=== PATIENT | male | born 1995 | race Two or more races ===

== ENCOUNTER 2021-03-25 05:50 | Emergency (ER) | payer OTHER, MEDICAID, SELFPAY ==
[2021-03-25 06:11] VITALS: BP 105/63; BP 144/80; PULSE 81; PULSE 90; RESP 16; TEMP 36.6; O2SAT 100; O2SAT 96; BMI 30.2
--- NOTE | 2021-03-25 06:20 | PC.NURSE ---
PT TO ROOM VIA EMS AFTER HAVING POSSIBLE SEIZURE ACTIVITY. PT ARRIVES ALERT, RESPIRATIONS EASY, N/L., SKIN W/D. SEIZURE PADS APPLIED TO BED. NO INCONTINENCE. PT ON MONITOR WITH HR 79. PT AWAITING FOR 'S EVAL. #20G TO LAC.
--- NOTE | 2021-03-25 06:55 | PC.NURSE ---
CALL OUT TO [facility] @[id number] KRUNAL SOOD MD [phone]
--- NOTE | 2021-03-25 06:58 | ED.SEIZURE ---
HPI - Seizure General Chief Complaint: Seizure Stated Complaint: Diff Breathing Time Seen by Provider: 03/25/21 06:18 History of Present Illness HPI Narrative: Patient is a 25-year-old male with a history of seizures. Baseline is on Keppra 1500 twice a day. Has also been titrated upward on the Lamictal currently at 100 mg twice a day since Saturday. Patient was seen at [facility] for seizures had a sleep study was in the hospital for 6 days. Had EEGs done back on February 25. Patient denies any fever chills. These episodes happen in 2 ways patient has an episode that seems partial seizure he knows what is going on it last for few seconds it happens multiple times a day. In addition patient had a different type of seizure where he had difficulty breathing at last for few seconds happens usually during the night. The 2nd type of seizure lasted longer than usual this time lasted for few minutes patient was sent to the hospital for further evaluation. There is no fever no chills. No coughing no congestion or upper respiratory symptoms. The frequency of both type procedure was unchanged. With different today is that this 2nd type of seizure lasted longer than usual. No coughing or congestion or upper respiratory symptoms patient denies no diaphoresis patient claims compliance to medications. Related Data Allergies Allergy/AdvReac Type Severity Reaction Status Date / Time No Known Allergies Allergy Verified 03/25/21 06:57 Review of Systems Review of Systems: No fever no chills no cough no congestion or upper respiratory symptoms Yes all other systems are reviewed and are negative PMFSH Past Medical History Attestation statement: The following information was validated with the patient. Medical History Seizures Social History Social History Alcohol intake: current Alcohol intake frequency: holidays/special occasions only Use of substances other than those prescribed or required for medical reasons: Yes Substance Use Type: Marijuana Advance Directives: No Advance Directives Information Provided: No Physical Exam Vital Signs: Vital Signs: Last Vital Signs Temp 97.8 F 03/25/21 06:11 Pulse 75 03/25/21 07:21 Resp 16 03/25/21 07:21 BP 114/69 03/25/21 07:21 Pulse Ox 99 03/25/21 07:21 BMI result Body Mass Index 30.2 Appearance: Alert. Oriented X3. No acute distress. Eyes: Pupils equal, round and reactive to light. ENT: Pharynx normal. Neck: Normal inspection. Neck supple. No lymph nodes noted. No crepitus CVS: Normal heart rate and rhythm. Pulses normal. Normal S1 and S2 Respiratory: No respiratory distress. Breath sounds normal. No Wheezing. No rales Abdomen: Soft and nontender. No rigidity. No distention. good BS x4 Skin: Skin warm and dry. Normal skin color. Normal skin turgor. Extremities: No lower extremity edema. Neurovascular intact to all extremities. No Lacerations. No Rash Neuro: Oriented X 3. No motor deficit. No sensory deficit. Moving all extermities. No slurred speech MDM - Seizure MDM Narrative Medical decision making narrative: Patient is having breakthrough seizures. This was confirmed with neurologist at [facility]. Patient's case discussed with Dr. Miguel at [facility]. Feel comfortable with current regimen will have patient continue to increase dose of Lamictal by 25 mg b.i.d. until he reaches 150 mg b.i.d.. Currently in stable condition patient has a zoom appointment with his neurologist this coming week. Neurologically intact will discharge home. Medical Records Attestation: I reviewed the patient's medical records. Lab Data Attestation: I reviewed the patient's lab results. Result diagrams: 03/25/21 07:35 03/25/21 07:35 Labs: Lab Results 03/25/21 03/25/21 03/25/21 Range/Units 07:35 07:35 07:35 WBC 15.3 H (4.8-10.8) X10*3/uL RBC 6.24 H (4.60-5.80) X10*6/uL Hgb 13.6 L (14.0-18.0) g/dl Hct 38.9 L (42.0-52.0) % MCV 62.3 L (80.0-98.0) fL MCH 21.8 L (27.0-33.0) pg MCHC 35.0 (31.0-36.0) g/dl RDW 17.2 H (11.0-16.0) % Plt Count 172 (160-400) X10*3/uL MPV Not Reportable Immature Gran % (Auto) 0.4 (0.0-0.4) % Neut % (Auto) 79.7 H (45-73) % Lymph % (Auto) 11.0 L (20-40) % [place] % (Auto) 7.8 (2-11) % Eos % (Auto) 0.7 (0-4) % Baso % (Auto) 0.4 (0-2) % Lymph # (Auto) 1.7 (1.2-4.9) X10*3/uL [place] # (Auto) 1.2 (0.1-1.2) X10*3/uL Eos # (Auto) 0.1 (0.0-0.4) X10*3/uL Baso # (Auto) 0.1 (0.0-0.2) X10*3/uL Abs Immat Gran (auto) 0.06 H (0.00-0.03) X10*3/uL Absolute Neuts (auto) 12.2 H (2.0-8.3) x10*3/uL Absolute Nucleated RBC 0.000 (0.0-0.012) X10*3/uL Nucleated RBC % (auto) 0.0 (0.0-0.2) /100WBC Sodium 139 (135-145) mmol/L Potassium 4.4 (3.3-5.1) mmol/L Chloride 104 (96-108) mmol/L Carbon Dioxide 28 (22-29) mmol/L Anion Gap 11 L (12-20) BUN 11 (9-16) mg/dL Creatinine 0.99 (0.5-1.4) mg/dL Estim Creat Clear Calc 118.6 Estimated GFR > 60 Random Glucose 85 (60-115) mg/dL Calcium 10.0 (8.4-10.2) mg/dL Urine Color YELLOW Urine Appearance CLEAR Urine pH 7.0 (5.0-8.0) Ur Specific [place] 1.020 (1.005-1.025) Urine Protein NEG (NEG-TRACE) MG/DL Urine Glucose (UA) NEG (NEG) MG/DL Urine Ketones NEG (NEG) MG/DL Urine Blood NEG (NEG) Urine Nitrite NEG (NEG) Ur Leukocyte Esterase NEG (NEG) Discharge Plan Discharge Clinical Impression: Epileptic seizure Patient Disposition: Home, Self-Care Instructions: Epilepsy (DC) Referrals: Physician,Unknown J [Primary Care Provider] - 2 days (Follow-up with neurology this week)
[2021-03-25 07:21] VITALS: BP 114/69; PULSE 75; RESP 16; O2SAT 99
[2021-03-25 07:38] LABS: MANUAL DIFF FLAG NO
[2021-03-25 07:40] LABS: Appearance Urine CLEAR; Color Urine YELLOW; Glucose Urine UA NEG (NEG); Leukocyte Esterase Urine NEG (NEG); Nitrite Urine NEG (NEG); Urine Blood NEG (NEG); Urine Ketones NEG (NEG); Urine Protein NEG (NEG-TRACE)
[2021-03-25 07:52] LABS: Basophils Absolute Auto 0.1 X10*3/uL (0.0-0.2); Basophils Percent Auto 0.4 % (0-2); Eosinophils Absolute Auto 0.1 X10*3/uL (0.0-0.4); Eosinophils Percent Auto 0.7 % (0-4); Hematocrit 38.9 % (42.0-52.0); Hemoglobin 13.6 g/dl (14.0-18.0); Imm Gran Abs Auto 0.06 X10*3/uL (0.00-0.03); Imm Gran Pct Auto 0.4 % (0.0-0.4); Lymphocytes Absolute Auto 1.7 X10*3/uL (1.2-4.9); Mean Corpuscular Hemoglobin 21.8 pg (27.0-33.0); Mean Corpuscular Volume 62.3 fL (80.0-98.0); Monocytes Absolute Auto 1.2 X10*3/uL (0.1-1.2); Monocytes Percent Auto 7.8 % (2-11); Neutrophils Absolute Auto 12.2 x10*3/uL (2.0-8.3); Neutrophils Percent Auto 79.7 % (45-73); Platelet Count 172 X10*3/uL (160-400); Red Blood Count 6.24 X10*6/uL (4.60-5.80); Red Cell Distribution Width 17.2 % (11.0-16.0); White Blood Count 15.3 X10*3/uL (4.8-10.8)
[2021-03-25 07:56] LABS: Anion Gap 11 (12-20); Blood Urea Nitrogen 11 mg/dL (9-16); Carbon Dioxide 28 mmol/L (22-29); Chloride 104 mmol/L (96-108); Creatinine Clr Calc Pharmacy 118.6; Estimated Glomerular Filt Rate > 60; Glucose Random 85 mg/dL (60-115); Potassium 4.4 mmol/L (3.3-5.1); Sodium 139 mmol/L (135-145)
== END 2021-03-25 09:17 | disposition home or self-care (01) ==
PROVIDERS: Emergency Provider Emergency Medicine Emergency Medical Services
DX: G40.909 Epilepsy, unspecified, not intractable, without status epilepticus (principal)
CPT/HCPCS: 36415; 80048; 81003; 85025; 99284

== ENCOUNTER 2021-04-12 22:32 | Emergency (ER) | payer OTHER, MEDICAID, SELFPAY ==
--- NOTE | 2021-04-12 22:35 | ECG_ITS ---
Test Reason : SEIZURE Blood Pressure : / mmHG Vent. Rate : 094 BPM Atrial Rate : 094 BPM P-R Int : 154 ms QRS Dur : 080 ms QT Int : 326 ms P-R-T Axes : 042 015 006 degrees QTc Int : 407 ms Normal sinus rhythm ST elevation, consider early repolarization, pericarditis, or injury Abnormal ECG No previous ECGs available Referred By: Bruna Guerrero Electronically Signed By:Riccardo Carter
[2021-04-12 22:39] VITALS: BP 112/63; PULSE 108; RESP 20; TEMP 36.6; O2SAT 98; BMI 28.4
--- NOTE | 2021-04-12 22:46 | PC.NURSE ---
PT TO ROOM, CHG INTO GOWN, SEIZURE PAD APPLIED TO STRETCHER. PT AWAKE, RESPIRAITONS EASY, N/L. SKIN W/D. WILL CONTINUE TO MONITOR PT.
--- NOTE | 2021-04-12 22:57 | ED_ITS ---
HPI - Seizure General Chief Complaint: Seizure Stated Complaint: SZ Time Seen by Provider: 04/12/21 22:35 Source: patient and EMS Mode of arrival: EMS Limitations: no limitations History of Present Illness HPI Narrative: ?25-year-old male with a history of seizures.? Baseline is on Keppra 1500 twice a day.? Has also been titrated upward on the Lamictal currently.?Patient was seen at [facility] for seizures had a sleep study was in the hospital for 6 days.? Had EEGs done back on February 25.? Patient denies any fever chills.? These episodes happen in 2 ways patient has an episode that seems partial seizure he knows what is going on it last for few seconds it happens multiple times a day.?Or he has difficulty breathing, normally at night. Today he did not experience difficulty breathing he just experienced a partial seizure, he remembers the whole thing he tells me. He did not lose conscious ness. He tells me that his left hand goes up to his left eye, and his right hand gets extended and stiff. He tells me this happened while he was rolling up marijuana and smoking. He denies any other drug use. He denies alcohol and tobacco use. He you was witnessed by his family, this episode lasted a few seconds. He was given Versed 5 mg nasally. He denies chest pain, shortness of breath, nausea, vomiting, fevers, chills, upper respiratory symptoms. He denies bladder/bowel incontinence. He denies tongue trauma. Patient tells me is taking his medications as prescribed. During this episode he did not fall or hit his head. complaint: seizure Onset (ago): minute(s) (30) Description of Episode: other (Preceding aura without loss of consciousness.) -: second(s) Witnessed: Yes - by Bystander Trauma: No Seizure History: Yes Place: Home (His mother's home.) Possible Precipitating Event: none and drug use (Smoking marijuana) Associated symptoms: denies other symptoms Treatments prior to arrival: other (5 mg of Versed intranasally) Related Data Allergies Allergy/AdvReac Type Severity Reaction Status Date / Time No Known Allergies Allergy Verified 03/25/21 06:57 Review of Systems Review of Systems: Constitutional : No Weight loss, No Fever, No Chills, No Fatigue, No Malaise ENT/Mouth : No sore throat, No Rhinorrhea Eyes: No Eye Pain, No Swelling, No Redness Cardiovascular : No Chest Pain, No SOB, No Dyspnea on Exertion, No Orthopnea, No Edema, No Palpitations Respiratory : No Cough, No Sputum, No Wheezing Gastrointestinal : No Nausea, No Vomiting, No Diarrhea, No Constipation, No abdominal Pain, No Hematochezia, No Melena Genitourinary : No Dysuria, No Urinary Frequency, No Hematuria, Musculoskeletal : No joint pain, No Myalgias, No Joint Swelling Skin : No Skin Lesions, No rash Neuro : No Weakness, No Numbness, No Dizziness, No Headache Psych : No Anxiety/Panic, No Depression All other systems reviewed and are negative Yes all other systems are reviewed and are negative [facility]LY [facility], [facility] Past Medical History Attestation statement: The following information was validated with the patient. Source: old records reviewed and nursing notes reviewed Medical History Seizures Social History Social History Alcohol intake: current Alcohol intake frequency: holidays/special occasions only Substance Use Type: Marijuana Advance Directives: No Advance Directives Information Provided: No Physical Exam Vital Signs: Vital Signs: Last Vital Signs Temp 97.9 F 04/13/21 00:00 Pulse 67 04/13/21 00:00 Resp 28 H 04/13/21 00:00 BP 104/62 04/13/21 00:00 Pulse Ox 96 04/13/21 00:00 BMI result Body Mass Index 28.4 VSS Appearance: Alert.? Oriented X3.? No acute distress.? Head: Normocephalic, atraumatic, no step-offs or deformities Eyes: Pupils equal, round and reactive to light.? ENT: Pharynx normal.? Neck: Normal inspection.? Neck supple.? CVS: Normal heart rate and rhythm.? Pulses normal.? Respiratory: No respiratory distress.? Breath sounds normal.? Abdomen: Soft and nontender.? Skin: Skin warm and dry.? Normal skin color.? Normal skin turgor.? Extremities: No lower extremity edema.? No calf ttp. 5/5 strength to bilateral upper and lower extremities Back: No midline tenderness, no C-spine tenderness, full range of motion, no CVA tenderness bilaterally Neuro: Oriented X 3.? No motor deficit.? No sensory deficit. CN 2-12 intact Course Reevaluation(s) Reevaluation #1: CBC appears to be at patient's baseline, leukocytosis likely secondary to seizure activity. Chemistry and no acute electrolyte abnormalities. Lamotr igine level pending. Patient's point of care was 100. Patient tells me he is feeling well however, he feels like he may have another episode coming on. No seizure-like activity since he has been here. Patient will follow-up with his neurologist. Time: 01:10 Reevaluation #2: Sign out given to Dr. Caballero pending improvement. I suspect that he will be discharged home. Time: 01:36 MDM - Seizure MDM Narrative Medical decision making narrative: 1109 25 yo m pmhx of epilepsy followed by [facility] Neurology presents with a seizure lasting seconds. According to chart review patient was seen here on 03/25/2021 where he was having breakthrough seizures. Provider at that time reached out to neurologist at [facility] which confirmed that patient was having breakthrough seizures. Our provider then discussed the case with Dr. Miguel at [facility] and as of that day there feeling comfortable with the regimen of medicines patient was on they were increasing the dose of Lamictal by 25 mg b.i.d. until he reached 150 mg b.i.d.. Physical examination benign. Plan labs. Patient did not fall, no head trauma. No need for CT of the head. Medical Records Attestation: I reviewed the patient's medical records. Lab Data Attestation: I reviewed the patient's lab results. Result diagrams: 04/13/21 00:04 04/13/21 00:04 Labs: Lab Results 04/12/21 04/13/21 04/13/21 Range/Units 23:02 00:04 00:04 WBC 13.9 H (4.8-10.8) X10*3/uL RBC 6.02 H (4.60-5.80) X10*6/uL Hgb 13.1 L (14.0-18.0) g/dl Hct 37.5 L (42.0-52.0) % MCV 62.3 L (80.0-98.0) fL MCH 21.8 L (27.0-33.0) pg MCHC 34.9 (31.0-36.0) g/dl RDW 16.8 H (11.0-16.0) % Plt Count 174 (160-400) X10*3/uL MPV TNP Immature Gran % (Auto) 0.4 (0.0-0.4) % Neut % (Auto) 82.8 H (45-73) % Lymph % (Auto) 9.4 L (20-40) % [place] % (Auto) 6.9 (2-11) % Eos % (Auto) 0.3 (0-4) % Baso % (Auto) 0.2 (0-2) % Lymph # (Auto) 1.3 (1.2-4.9) X10*3/uL [place] # (Auto) 1.0 (0.1-1.2) X10*3/uL Eos # (Auto) 0.0 (0.0-0.4) X10*3/uL Baso # (Auto) 0.0 (0.0-0.2) X10*3/uL Abs Immat Gran (auto) 0.05 H (0.00-0.03) X10*3/uL Absolute Neuts (auto) 11.5 H (2.0-8.3) x10*3/uL Absolute Nucleated RBC 0.000 (0.0-0.012) X10*3/uL Nucleated RBC % (auto) 0.0 (0.0-0.2) /100WBC Smear Tech's Comments VERIFIED Sodium 140 (135-145) mmol/L Potassium 4.7 (3.3-5.1) mmol/L Chloride 105 (96-108) mmol/L Carbon Dioxide 26 (22-29) mmol/L Anion Gap 14 (12-20) BUN 15 (9-16) mg/dL Creatinine 0.92 (0.5-1.4) mg/dL Estim Creat Clear Calc 124.1 Estimated GFR > 60 POC Glucose 100 (60-115) mg/dL Random Glucose 71 (60-115) mg/dL Calcium 10.0 (8.4-10.2) mg/dL Magnesium 2.3 (1.6-2.6) mg/dL Total Bilirubin 0.6 (0.0-1.0) mg/dL AST 20 (5-37) U/L ALT 27 (0-40) U/L Alkaline Phosphatase 97 (39-117) U/L Total Protein 7.2 (6.5-8.0) g/dL Albumin 4.6 (3.5-5.0) g/dL ECG Data Attestation: I personally reviewed and interpreted this ECG as follows: ECG interpretation date: 04/13/21 ECG interpretation time: 00:52 Prior ECG tracings: not available for review Interpretation: Ventricular rate of 94, VA normal, QRS normal, QT/QTC normal. EKG shows normal sinus rhythm ST elevations present in the anterior leads consistent with early repolarization. No signs of acute ischemia. No previous EKGs to compare with. Critical Care Time Critical Care Time Critical Care Time: No Discharge Plan Discharge Clinical Impression: Epileptic seizure Patient Disposition: Home, Self-Care Instructions: Epilepsy (DC) Additional Instructions: Take your medications as prescribed. If you were prescribed antibiotics today, it is important that you take your medication to their entirety, do not skip any doses, do not finish them early. Follow-up with your primary care provider this week. Follow-up with Neurology tomorrow. Return to the emergency department with new or worsening symptoms. Such as new seizure-like activity, altered mentation, chest pain, shortness of breath, headache, dizziness, weakness, lethargy, fevers, chills, nausea, vomiting. Please to not drive until Neurology tells you it is okay to drive. In case of emergency call 911 Referrals: Johnie Lu MD [Physician] - 2 days Whitney Raymond NP [Primary Care Provider] - 2 days Stand Alone Forms: Work/School Release
[2021-04-12 23:06] LABS: Glucose, Whole Blood 100 mg/dL (60-115)
[2021-04-12] MEDS: LORazepam 1 MG TABLET PO (23:57)
[2021-04-13] VITALS: BP 104/62; PULSE 67; RESP 28; TEMP 36.6; O2SAT 96
[2021-04-13 00:11] LABS: Basophils Percent Auto 0.2 % (0-2); Eosinophils Percent Auto 0.3 % (0-4); Hematocrit 37.5 % (42.0-52.0); Hemoglobin 13.1 g/dl (14.0-18.0); Imm Gran Abs Auto 0.05 X10*3/uL (0.00-0.03); Imm Gran Pct Auto 0.4 % (0.0-0.4); Lymphocytes Absolute Auto 1.3 X10*3/uL (1.2-4.9); Lymphocytes Percent Auto 9.4 % (20-40); Mean Corpuscular HGB Conc 34.9 g/dl (31.0-36.0); Mean Corpuscular Hemoglobin 21.8 pg (27.0-33.0); Monocytes Percent Auto 6.9 % (2-11); Neutrophils Absolute Auto 11.5 x10*3/uL (2.0-8.3); Neutrophils Percent Auto 82.8 % (45-73); Platelet Count 174 X10*3/uL (160-400); Red Blood Count 6.02 X10*6/uL (4.60-5.80); Red Cell Distribution Width 16.8 % (11.0-16.0); White Blood Count 13.9 X10*3/uL (4.8-10.8)
[2021-04-13 00:13] LABS: MANUAL DIFF FLAG SCAN; Mean Corpuscular Volume 62.3 fL (80.0-98.0)
[2021-04-13 00:33] LABS: SLIDE REVIEW VERIFIED
[2021-04-13 00:37] LABS: Alanine Aminotransferase 27 U/L (0-40); Albumin Level 4.6 g/dL (3.5-5.0); Alkaline Phosphatase 97 U/L (39-117); Anion Gap 14 (12-20); Aspartate Amino Transferase 20 U/L (5-37); Bilirubin Total 0.6 mg/dL (0.0-1.0); Blood Urea Nitrogen 15 mg/dL (9-16); Carbon Dioxide 26 mmol/L (22-29); Chloride 105 mmol/L (96-108); Creatinine Clr Calc Pharmacy 124.1; Estimated Glomerular Filt Rate > 60; Glucose Random 71 mg/dL (60-115); Magnesium 2.3 mg/dL (1.6-2.6); Potassium 4.7 mmol/L (3.3-5.1); Sodium 140 mmol/L (135-145); Total Protein 7.2 g/dL (6.5-8.0)
[2021-04-13] MEDS: levETIRAcetam in NaCl (iso-os) 1,000 MG/100 ML PIGGYBACK 400 MG IV (03:17)
--- NOTE | 2021-04-13 03:22 | PC.NURSE ---
pt having periods of seizure activity. MD at bedside and pt medicated as per emar.
[2021-04-17 11:11] LABS: Lamotrigine Lamictal 4.2 mcg/mL (4.0-18.0)
== END 2021-04-13 05:23 | disposition home or self-care (01) ==
PROVIDERS: Physician Assistant; Emergency Provider Internal Medicine; PCP Nurse Practitioner Family
DX: G40.909 Epilepsy, unspecified, not intractable, without status epilepticus (principal); F12.90 Cannabis use, unspecified, uncomplicated; Z79.899 Other long term (current) drug therapy
CPT/HCPCS: 36415; 80053; 80175; 82947; 83735; 85025; 93005; 96374; 99284; J1953

== ENCOUNTER 2022-05-13 10:54 | Emergency (ER) | payer OTHER, MEDICAID, SELFPAY ==
--- NOTE | 2022-05-13 10:59 | ED_ITS ---
HPI - Abdominal Pain General Chief Complaint: General Medical Stated Complaint: Abd pain per EMS Time Seen by Provider: 05/13/22 10:57 Source: patient, family and EMS Mode of arrival: EMS Limitations: no limitations History of Present Illness HPI narrative: This is a [id number]-male, with a past medical history of seizures, who presents to the emergency department Via EMS, accompanied by his mother, with complaints of abdominal pain that lasted for 1 hour. Patient states that this morning, he woke up and had periumbilical pain. The pain worsened while he was having a bowel movement, and he vomited, and his mother called EMS. He states that the pain lasted for 1 hour and he no longer has the pain. He states that he vomited two times this morning while having this pain. He states that he has had a bowel movement this morning which was normal. Denies any dysuria, hematuria, urinary urgency, urinary frequency. Denies concern for STIs. Denies hx of similar symptoms in the past. Denies hx of abdominal surgeries. Denies any sick contacts. No other complaints or concerns at this time. MD elicited complaint: abdominal pain Pertinent past history: none Onset (ago): hour(s) Pain Consistency: now resolved Location: periumbilical and suprapubic Quality: cramping Radiation: none Migration to: no migration Exacerbating factors: bowel movement Relieving factors: nothing Associated symptoms: nausea and vomiting Related Data Allergies Allergy/AdvReac Type Severity Reaction Status Date / Time No Known Allergies Allergy Verified 03/25/21 06:57 Review of Systems Review of Systems Yes all other systems are reviewed and are negative [facility] Past Medical History Medical History Seizures Social History Social History Alcohol intake: current Alcohol intake frequency: holidays/special occasions only Substance Use Type: Marijuana Advance Directives: No Advance Directives Information Provided: Yes Physical Exam ED Vital Signs: Vital Signs - 24 hr 05/13/22 11:04 Temperature 97.9 F Pulse Rate 92 Respiratory Rate 18 Blood Pressure 119/71 Pulse Oximetry 98 Oxygen Delivery Method Room Air BMI result Body Mass Index 25.0 Appearance: Alert. Oriented X3. No acute distress. Eyes: Pupils equal, round and reactive to light. EOMI ENT: Pharynx normal. Oral pharynx is nonerythematous, nonedematous, patent, uvula is midline. Neck: Normal inspection. Neck supple. CVS: Normal heart rate and rhythm. Pulses normal. S1S2 regular. Respiratory: No respiratory distress. Breath sounds normal. Lungs clear to auscultation bilaterally. Abdomen: Soft and nontender. +BS x4, no tenderness over McBurney's point. No rebound or guarding. Skin: Skin warm and dry. Normal skin color. Normal skin turgor. No rashes. Extremities: No lower extremity edema. Neuro: Oriented X 3. No motor deficit. No sensory deficit. CN II-XII intact. Course Reevaluation(s) Reevaluation #1: leukocytosis at 16.3 noted, but appears that patient's WBC is chronically elevated. UA pending at this time. Time: 12:55 Reevaluation #2: UA unremarkable. It is unclear what had caused his abdominal pain, but he has not had any abdominal pain since he has been in the ER today. Encouraged to monitor for recurrance of abdominal pain. Patient eager to be discharged. VSS. Patient understands and agrees with plan. Time: 14:37 Medical Decision Making Medical Decision Making MDM Narrative: This is a 12-rx[age]-oul-male, with a past medical history of seizures, who presents to the emergency department via EMS, accompanied by mother, with complaints of abdominal pain which lasted 1 hour and has resolved. He vomited twice this morning. He has no urinary symptoms. During examination patient had reported episode after laying patient down for abdominal exam. Patient developed blank gaze, and used his bilateral hands to stroke his thighs, breathing deeply, this lasted for about 45 seconds. Mother states that this is typical of his episodes and he is closely monitored by his neurologist at [facility]. Per patient and mother, this condition is unchanged. Mother reports patient's neurologist has a clinical meeting regarding his condition to discuss surgical candidacy. Abdomen is soft, nontender, normoactive bowel sounds present. Will obtain labs, urinalysis. Differential Diagnosis Differential Diagnoses: The differential diagnosis associated with the presentation includes Gastritis, gastroentritis, SBO, UTI, cholecystitis - unlikely Lab Data 05/13/22 11:56 05/13/22 11:56 Labs: Lab Results 0405/13/22 05/13/22 Range/Units 11:56 11:56 14:10 WBC 16.3 H (4.8-10.8) X10*3/uL RBC 5.81 H (4.60-5.80) X10*6/uL Hgb 13.1 L (14.0-18.0) g/dl Hct 36.9 L (42.0-52.0) % MCV 63.5 L (80.0-98.0) fL MCH 22.5 L (27.0-33.0) pg MCHC 35.5 (31.0-36.0) g/dl RDW 15.7 (11.0-16.0) % Plt Count 281 D (160-400) X10*3/uL MPV 9.7 (9.4-12.4) fL Immature Gran % (Auto) 0.4 (0.0-0.4) % Neut % (Auto) 86.8 H (45-73) % Lymph % (Auto) 6.9 L (20-40) % [place] % (Auto) 4.5 (2-11) % Eos % (Auto) 0.9 (0-4) % Baso % (Auto) 0.5 (0-2) % Lymph # (Auto) 1.1 L (1.2-4.9) X10*3/uL [place] # (Auto) 0.7 (0.1-1.2) X10*3/uL Eos # (Auto) 0.1 (0.0-0.4) X10*3/uL Baso # (Auto) 0.1 (0.0-0.2) X10*3/uL Abs Immat Gran (auto) 0.06 H (0.00-0.03) X10*3/uL Absolute Neuts (auto) 14.2 H (2.0-8.3) x10*3/uL Absolute Nucleated RBC 0.000 (0.0-0.012) X10*3/uL Nucleated RBC % (auto) 0.0 (0.0-0.2) /100WBC Sodium 141 (135-145) mmol/L Potassium 4.6 (3.3-5.1) mmol/L Chloride 106 (96-108) mmol/L Carbon Dioxide 26 (22-29) mmol/L Anion Gap 14 (12-20) BUN 14 (9-16) mg/dL Creatinine 0.90 (0.5-1.4) mg/dL Estim Creat Clear Calc 118.3 Estimated GFR > 60 Random Glucose 130 H (60-115) mg/dL Calcium 9.4 (8.4-10.2) mg/dL Magnesium 2.1 (1.6-2.6) mg/dL Total Bilirubin 0.5 (0.0-1.0) mg/dL Direct Bilirubin 0.2 (0.0-0.5) mg/dL AST 20 (5-37) U/L ALT 21 (0-40) U/L Alkaline Phosphatase 71 (39-117) U/L Total Protein 6.7 (6.5-8.0) g/dL Albumin 4.4 (3.5-5.0) g/dL Lipase 14 (8-78) U/L Urine Color Yellow Urine Appearance Cloudy Urine pH 8.5 (5.0-9.0) Ur Specific [place] 1.020 (1.005-1.025) Urine Protein 30 (1+) H (Neg-Trace) mg/dL Urine Glucose (UA) Negative (Negative) mg/dL Urine Ketones Negative (Negative) mg/dL Urine Blood Negative (Negative) Urine Nitrite Negative (Negative) Ur Leukocyte Esterase Negative (Negative) Urine RBC 3-5 H (0-2) /HPF Urine WBC 6-10 H (0-5) /HPF Ur Squamous Epith Cells 3-5 (0-2) /HPF Urine Bacteria None Seen (None Seen) Hyaline Casts 0-2 (0-2) /LPF Discharge Plan Discharge Clinical Impression: Abdominal pain Patient Disposition: Home, Self-Care Instructions: Abdominal Pain (ED) Additional Instructions: Your urine showed no signs of infection. It is unclear what caused your abdominal pain earlier today but it is re-assuring that this has since resolved. Drink plenty of fluids and get plenty of rest. Follow up with your neurologist and primary care physician as needed. If any new or worsening symptoms occur, please return for re-evaluation.
[2022-05-13 11:04] VITALS: BP 119/71; PULSE 92; RESP 18; TEMP 36.6; O2SAT 98; BMI 25.0
--- NOTE | 2022-05-13 11:10 | PC.NURSE ---
Pt with sz disorder, noted to have moments of spastic behavior which mom states is a normal episode that he has daily. States he takes anticonvulsants daily for these episodes.
[2022-05-13 12:00] LABS: MANUAL DIFF FLAG NO
[2022-05-13 12:01] LABS: Basophils Absolute Auto 0.1 X10*3/uL (0.0-0.2); Basophils Percent Auto 0.5 % (0-2); Eosinophils Absolute Auto 0.1 X10*3/uL (0.0-0.4); Eosinophils Percent Auto 0.9 % (0-4); Hematocrit 36.9 % (42.0-52.0); Hemoglobin 13.1 g/dl (14.0-18.0); Imm Gran Abs Auto 0.06 X10*3/uL (0.00-0.03); Imm Gran Pct Auto 0.4 % (0.0-0.4); Lymphocytes Absolute Auto 1.1 X10*3/uL (1.2-4.9); Lymphocytes Percent Auto 6.9 % (20-40); Mean Corpuscular HGB Conc 35.5 g/dl (31.0-36.0); Mean Corpuscular Hemoglobin 22.5 pg (27.0-33.0); Mean Platelet Volume 9.7 fL (9.4-12.4); Monocytes Absolute Auto 0.7 X10*3/uL (0.1-1.2); Monocytes Percent Auto 4.5 % (2-11); Neutrophils Absolute Auto 14.2 x10*3/uL (2.0-8.3); Neutrophils Percent Auto 86.8 % (45-73); Platelet Count 281 X10*3/uL (160-400); Red Blood Count 5.81 X10*6/uL (4.60-5.80); Red Cell Distribution Width 15.7 % (11.0-16.0); White Blood Count 16.3 X10*3/uL (4.8-10.8)
[2022-05-13 12:03] LABS: Mean Corpuscular Volume 63.5 fL (80.0-98.0)
[2022-05-13 12:22] LABS: Alanine Aminotransferase 21 U/L (0-40); Albumin Level 4.4 g/dL (3.5-5.0); Alkaline Phosphatase 71 U/L (39-117); Anion Gap 14 (12-20); Aspartate Amino Transferase 20 U/L (5-37); Bilirubin Direct 0.2 mg/dL (0.0-0.5); Bilirubin Total 0.5 mg/dL (0.0-1.0); Blood Urea Nitrogen 14 mg/dL (9-16); Calcium 9.4 mg/dL (8.4-10.2); Carbon Dioxide 26 mmol/L (22-29); Chloride 106 mmol/L (96-108); Creatinine Clr Calc Pharmacy 118.3; Estimated Glomerular Filt Rate > 60; Glucose Random 130 mg/dL (60-115); Lipase 14 U/L (8-78); Magnesium 2.1 mg/dL (1.6-2.6); Potassium 4.6 mmol/L (3.3-5.1); Sodium 141 mmol/L (135-145); Total Protein 6.7 g/dL (6.5-8.0)
--- NOTE | 2022-05-13 14:00 | PC.NURSE ---
Large pitcher of water provided for urine sample
[2022-05-13 14:19] LABS: Appearance Urine Cloudy; Color Urine Yellow; Glucose Urine UA Negative (Negative); Leukocyte Esterase Urine Negative (Negative); Nitrite Urine Negative (Negative); PH 8.5 (5.0-9.0); UMIC TRIGGER UACC YES; Urine Blood Negative (Negative); Urine Ketones Negative (Negative); Urine Protein 30 (1+) mg/dL (Neg-Trace)
[2022-05-13 14:21] LABS: Bacteria Urine None Seen (None Seen); Hyaline Casts Urine 0-2 /LPF (0-2); UACC Culture Trigger YES
== END 2022-05-13 14:49 | disposition home or self-care (01) ==
PROVIDERS: Physician Assistant Medical; Emergency Provider Emergency Medicine; PCP Nurse Practitioner Family
DX: R10.33 Periumbilical pain (principal); Z79.899 Other long term (current) drug therapy
CPT/HCPCS: 36415; 80048; 80076; 81001; 83690; 83735; 85025; 87086; 99283; 99284

== ENCOUNTER 2022-10-28 12:02 | Emergency (ER) | payer OTHER, MEDICAID, SELFPAY ==
--- NOTE | ~2022-10-28 | XR_ITS ---
EXAMINATION: CHEST 2 VIEWS CLINICAL INFORMATION: chest pain. COMPARISON: No recent pertinent prior studies are available for comparison. TECHNIQUE: PA and lateral views of the chest obtained. FINDINGS: The lungs are well expanded. No focal infiltrate, effusion, edema, or pneumothorax. Cardiac and mediastinal silhouettes are within normal limits for technique. No acute bony abnormality seen XR/XR chest 2V IMPRESSION: No evidence of acute disease
--- NOTE | 2022-10-28 12:06 | ECG_ITS ---
Test Reason : CP Blood Pressure : / mmHG Vent. Rate : 071 BPM Atrial Rate : 071 BPM P-R Int : 158 ms QRS Dur : 086 ms QT Int : 362 ms P-R-T Axes : 058 064 034 degrees QTc Int : 393 ms Normal sinus rhythm with sinus arrhythmia Early repolarization Normal ECG When compared with ECG of 12-APR-2021 22:50, No significant change was found Referred By: Jamar Doss Electronically Signed By:HAVEN FORD
[2022-10-28 12:21] VITALS: BP 121/73; PULSE 75; RESP 18; TEMP 36.4; O2SAT 98; BMI 21.8
[2022-10-28 12:25] LABS: MANUAL DIFF FLAG NO
--- NOTE | 2022-10-28 12:26 | ED.GENADULT ---
HPI - General Adult General Chief complaint: Seizure Stated complaint: heart spasms? Time Seen by Provider: 10/28/22 12:44 Source: patient and family (Mother) Mode of arrival: ambulatory History of Present Illness HPI narrative: 26-year-old male who presents with long-standing history, 3 years, of epilepsy seizures that occur her every day with a noted or a and then states today he is had the auras but they have not been followed by seizures but he has been experiencing muscle spasms in his left chest that he associates with his heart. He denies any other dizziness/headaches or shortness of breath associated with this and states that they are very transient in nature. He does mother both deny any recent change in dosage of his anti epileptics and deny any frequency changes in anti epileptics. One year ago he did undergo of Holter monitoring which is negative for any acute findings. Patient reports limited use of caffeine. Related Data Allergies Allergy/AdvReac Type Severity Reaction Status Date / Time No Known Allergies Allergy Verified 03/25/21 06:57 Review of Systems Review of Systems: Pertinent positives and negatives as stated in HPI [facility] Past Medical History Source: nursing notes reviewed Medical History Seizures Social History Social History Alcohol intake: current Alcohol intake frequency: holidays/special occasions only Substance Use Type: Marijuana Advance Directives: No Advance Directives Information Provided: Yes Physical Exam ED Vital Signs: Vital Signs - 24 hr 10/28/22 12:21 10/28/22 13:35 10/28/22 14:26 Temperature 97.6 F 97.8 F 97.9 F Pulse Rate 75 64 67 Respiratory Rate 18 14 16 Blood Pressure 121/73 100/69 98/54 L Pulse Oximetry 98 96 96 Oxygen Delivery Method Room Air Room Air Room Air BMI result Body Mass Index 21.8 VITAL SIGNS: Reviewed. GENERAL: Well developed, well nourished, in no acute distress. HEAD: Normocephalic/atraumatic EYES: PERRLA, EOMI EARS: Ext canals without abnormality NOSE: Nares patent bilateral OROPHARYNX: no oral lesions noted, posterior pharynx clear NECK: Supple, no adenopathy LUNGS: Normal breath sounds. No adventitious sounds or accessory muscle use. SpO2<98> CARDIOVASCULAR: Regular rate and rhythm without noted murmurs ABDOMEN: Soft, non-tender, non-distended with bowel sounds. MUSCULOSKELETAL: No tenderness, deformities, or effusions noted on gross inspection. EXTREMITIES: No cyanosis, clubbing or edema. SKIN: Inspection of the skin reveals no rashes NEUROLOGIC: Alert and oriented x 4. Strength and sensation to light touch were grossly intact x 4. Course Course Course Narrative: RME: 26 yold male with pmh of seizure presents to the ED for left sided chest pain describes as tightness since this morning. patinet states having mini-seziure dialy and had it his morning. patient states he is usually awalke when he has thme. labs and chest xray ordered Medical Decision Making Medical Decision Making [facility] [place] Narrative: 26-year-old male with history and clinical presentation, DDX: Musculoskeletal, much less likely infection/anemia/electrolyte abnormalities/arrhythmia/PE/pneumonia or pneumothorax. I reviewed all investigations and hematologic indices are without leukocytosis or left shift, no thrombocytopenia and no anemia. Coagulation studies are within normal limits other than a prolonged PTT of 38.9 but otherwise D-dimer is undetectable. Chemistry indices grossly within normal limits, there is no KIM are electrolytes/liver enzymes derangements, high sensitivity troponin is undetectable and BNP is negligible. COVID-19 is negative. EKG is negative for ischemic changes in his stead demonstrates early repolarization. Awaiting chest x-ray but at this time my interpretation is patient is experiencing musculoskeletal pain in feel that this is a benign symptom although did discuss with the patient and his mother that this may be a new feature of his but is worthwhile following up with his primary care doctor for repeat evaluation with a Holter monitor. 1448: No infiltrate seen on chest x-ray and otherwise my interpretation is in agreement with radiology's impression. Differential Diagnosis Differential Diagnoses: The differential diagnosis associated with the presentation includes Please see the discussion above Admission/Observation Consideration of admission/observation: Escalation of care including admission/observation considered Please see the discussion above Lab Data [facility] [place] Lab Attestation statement: I reviewed the patient's lab results. Please see the discussion above 10/28/22 12:19 10/28/22 12:20 Labs: Lab Results 10/28/22 10/28/22 10/28/22 Range/Units 12:19 12:20 13:35 WBC 9.9 (4.8-10.8) X10*3/uL RBC 6.45 H (4.60-5.80) X10*6/uL Hgb 14.8 (14.0-18.0) g/dl Hct 40.9 L (42.0-52.0) % MCV 63.4 L (80.0-98.0) fL MCH 22.9 L (27.0-33.0) pg MCHC 36.2 H (31.0-36.0) g/dl RDW 17.2 H (11.0-16.0) % Plt Count 162 D (160-400) X10*3/uL MPV 10.3 (9.4-12.4) fL Immature Gran % (Auto) 0.2 (0.0-0.4) % Neut % (Auto) 55.0 (45-73) % Lymph % (Auto) 33.1 (20-40) % Wetzel % (Auto) 7.8 (2-11) % Eos % (Auto) 3.1 (0-4) % Baso % (Auto) 0.8 (0-2) % Lymph # (Auto) 3.3 (1.2-4.9) X10*3/uL Wetzel # (Auto) 0.8 (0.1-1.2) X10*3/uL Eos # (Auto) 0.3 (0.0-0.4) X10*3/uL Baso # (Auto) 0.1 (0.0-0.2) X10*3/uL Abs Immat Gran (auto) 0.02 (0.00-0.03) X10*3/uL Absolute Neuts (auto) 5.4 (2.0-8.3) x10*3/uL Absolute Nucleated RBC 0.000 (0.0-0.012) X10*3/uL Nucleated RBC % (auto) 0.0 (0.0-0.2) /100WBC PT (11.1-13.3) SEC INR (0.9-1.1) APTT (26.0-36.4) SEC D-Dimer High Sensitivty NG/ML Sodium 140 (135-145) mmol/L Potassium 4.0 (3.3-5.1) mmol/L Chloride 105 (96-108) mmol/L Carbon Dioxide 28 (22-29) mmol/L Anion Gap 11 L (12-20) BUN 13 (9-16) mg/dL Creatinine 0.96 (0.5-1.4) mg/dL Estim Creat Clear Calc 102.7 Estimated GFR > 60 Random Glucose 87 (60-115) mg/dL Calcium 9.8 (8.4-10.2) mg/dL Magnesium 1.9 (1.6-2.6) mg/dL Total Bilirubin 0.7 (0.0-1.0) mg/dL AST 15 (5-37) U/L ALT 22 (0-40) U/L Alkaline Phosphatase 66 (39-117) U/L Troponin I High Sens < 2.7 (<3.5-35.0) ng/L B-Natriuretic Peptide 14 (<100) pg/mL Total Protein 6.9 (6.5-8.0) g/dL Albumin 4.6 (3.5-5.0) g/dL COVID-19 (NISH) Negative (Negative) COVID-19 Clin Com See Note 10/28/22 Range/Units 13:52 WBC (4.8-10.8) X10*3/uL RBC (4.60-5.80) X10*6/uL Hgb (14.0-18.0) g/dl Hct (42.0-52.0) % MCV (80.0-98.0) fL MCH (27.0-33.0) pg MCHC (31.0-36.0) g/dl RDW (11.0-16.0) % Plt Count (160-400) X10*3/uL MPV (9.4-12.4) fL Immature Gran % (Auto) (0.0-0.4) % Neut % (Auto) (45-73) % Lymph % (Auto) (20-40) % Wetzel % (Auto) (2-11) % Eos % (Auto) (0-4) % Baso % (Auto) (0-2) % Lymph # (Auto) (1.2-4.9) X10*3/uL Wetzel # (Auto) (0.1-1.2) X10*3/uL Eos # (Auto) (0.0-0.4) X10*3/uL Baso # (Auto) (0.0-0.2) X10*3/uL Abs Immat Gran (auto) (0.00-0.03) X10*3/uL Absolute Neuts (auto) (2.0-8.3) x10*3/uL Absolute Nucleated RBC (0.0-0.012) X10*3/uL Nucleated RBC % (auto) (0.0-0.2) /100WBC PT 11.1 (11.1-13.3) SEC INR 0.9 (0.9-1.1) APTT 38.9 H (26.0-36.4) SEC D-Dimer High Sensitivty < 150 NG/ML Sodium (135-145) mmol/L Potassium (3.3-5.1) mmol/L Chloride (96-108) mmol/L Carbon Dioxide (22-29) mmol/L Anion Gap (12-20) BUN (9-16) mg/dL Creatinine (0.5-1.4) mg/dL Estim Creat Clear Calc Estimated GFR Random Glucose (60-115) mg/dL Calcium (8.4-10.2) mg/dL Magnesium (1.6-2.6) mg/dL Total Bilirubin (0.0-1.0) mg/dL AST (5-37) U/L ALT (0-40) U/L Alkaline Phosphatase (39-117) U/L Troponin I High Sens (<3.5-35.0) ng/L B-Natriuretic Peptide (<100) pg/mL Total Protein (6.5-8.0) g/dL Albumin (3.5-5.0) g/dL COVID-19 (NISH) (Negative) COVID-19 Clin Com Independent Interpretation I performed an independent interpretation of an: EKG Interpretation: Normal sinus rhythm, HR-71, no STEMI, SD/QRS/QTC is within normal limits. Early repolarization is present. Radiology Impression Discussion of test interpretation with radiology: I have reviewed the radiologist's reading. Radiologist Impression: Please see the discussion above External Record Review External record reviewed: Outpatient record, Prior outpatient labs and Prior outpatient radiology Critical Care Time Critical Care Time Critical Care Time: Yes Total Critical Care Time: 30 Attestation: I personally attest to this time spent taking care of the patient. Discharge Plan Discharge Clinical Impression: Atypical chest pain Patient Disposition: Home, Self-Care Instructions: Chest Wall Pain (ED) Additional Instructions: 1. Resume all home medications as prescribed. 2. Follow-up with your primary care doctor and discuss a referral for Holter monitor. Return to the ER for any worsening symptoms. Referrals: Whitney Raymond [facility] [Primary Care Provider] - Interventions: ED Discharge Assessment Last Done: 10/28/22 14:53 Discharge Date/Time: 10/28/22 14:53
[2022-10-28 12:29] LABS: Basophils Absolute Auto 0.1 X10*3/uL (0.0-0.2); Basophils Percent Auto 0.8 % (0-2); Eosinophils Absolute Auto 0.3 X10*3/uL (0.0-0.4); Eosinophils Percent Auto 3.1 % (0-4); Hematocrit 40.9 % (42.0-52.0); Hemoglobin 14.8 g/dl (14.0-18.0); Imm Gran Abs Auto 0.02 X10*3/uL (0.00-0.03); Imm Gran Pct Auto 0.2 % (0.0-0.4); Lymphocytes Absolute Auto 3.3 X10*3/uL (1.2-4.9); Lymphocytes Percent Auto 33.1 % (20-40); Mean Corpuscular HGB Conc 36.2 g/dl (31.0-36.0); Mean Corpuscular Hemoglobin 22.9 pg (27.0-33.0); Mean Corpuscular Volume 63.4 fL (80.0-98.0); Mean Platelet Volume 10.3 fL (9.4-12.4); Monocytes Absolute Auto 0.8 X10*3/uL (0.1-1.2); Monocytes Percent Auto 7.8 % (2-11); Neutrophils Absolute Auto 5.4 x10*3/uL (2.0-8.3); Platelet Count 162 X10*3/uL (160-400); Red Blood Count 6.45 X10*6/uL (4.60-5.80); Red Cell Distribution Width 17.2 % (11.0-16.0); White Blood Count 9.9 X10*3/uL (4.8-10.8)
[2022-10-28 12:47] LABS: Alanine Aminotransferase 22 U/L (0-40); Albumin Level 4.6 g/dL (3.5-5.0); Alkaline Phosphatase 66 U/L (39-117); Anion Gap 11 (12-20); Aspartate Amino Transferase 15 U/L (5-37); Bilirubin Total 0.7 mg/dL (0.0-1.0); Blood Urea Nitrogen 13 mg/dL (9-16); Calcium 9.8 mg/dL (8.4-10.2); Carbon Dioxide 28 mmol/L (22-29); Chloride 105 mmol/L (96-108); Creatinine Clr Calc Pharmacy 102.7; Estimated Glomerular Filt Rate > 60; Glucose Random 87 mg/dL (60-115); Magnesium 1.9 mg/dL (1.6-2.6); Sodium 140 mmol/L (135-145); Total Protein 6.9 g/dL (6.5-8.0)
[2022-10-28 12:47] LABS: B Type Natriuretic Peptide 14 pg/mL (<100)
[2022-10-28 12:50] LABS: Troponin-I High Sensitivity < 2.7 ng/L (<3.5-35.0)
[2022-10-28 13:35] VITALS: BP 100/69; PULSE 64; RESP 14; TEMP 36.6; O2SAT 96
--- NOTE | 2022-10-28 13:38 | PC.NURSE ---
alert and oriented, respirations even and unlabored. resting quietly in room, call lee within reach. COVID swab obtained and sent.
[2022-10-28 14:03] LABS: INTERNATIONAL NORM RATIO 0.9 (0.9-1.1); Prothrombin Time 11.1 SEC (11.1-13.3)
[2022-10-28 14:04] LABS: COVID-19 Test Negative (Negative); IDNOW Serial# BCCEAD1C
[2022-10-28 14:06] LABS: Partial Thromboplastin Time 38.9 SEC (26.0-36.4)
[2022-10-28 14:07] LABS: D Dimer High Sensitivity < 150 NG/ML
[2022-10-28 14:26] VITALS: BP 98/54; PULSE 67; RESP 16; TEMP 36.6; O2SAT 96
== END 2022-10-28 14:53 | disposition home or self-care (01) ==
PROVIDERS: Physician Assistant; Emergency Provider Student in an Organized Health Care Education/Training Program; PCP Nurse Practitioner Family
DX: R07.89 Other chest pain (principal); R06.02 Shortness of breath; Z20.822 Contact with and (suspected) exposure to COVID-19; Z20.828 Contact with and (suspected) exposure to other viral communicable diseases; Z79.899 Other long term (current) drug therapy
CPT/HCPCS: 36415; 71046; 80053; 83735; 83880; 84484; 85025; 85379; 85610; 85730; 87635; 93005; 99284